=== PATIENT | female | born 1940 | race African-American/Black ===

== ENCOUNTER 2019-11-21 15:31 | Emergency (ER) | payer MEDICARE ==
[~2019-11-21] VITALS: Ht 154.9 cm; Wt 58.0 kg
[2019-11-21] MEDS ORDERED: hydrALAZINE 20 MG/ML VIAL. IVP ONE (16:00)
--- NOTE | 2019-11-21 16:04 | PHYS DOC ---
Adult General Chief Complaint Chief Complaint: DIZZY/LIGHT HEADED HPI HPI Patient is a 79 year old female with history of hypertension who presents to the ED today complaining of intermittent episodes of dizziness and tingling to bilateral fingers and reports hx of back/neck surgery, symptoms for 2 weeks. Patient denies any exacerbating or relieving factors to her symptoms. Denies any chest pain or shortness of breath. She reports her symptoms have increasingly gotten worse in the last couple days hence the reason she came to the ED. Review of Systems Review of Systems Constitutional: Denies fever or chills [] Eyes: Denies change in visual acuity, redness, or eye pain [] HENT: Denies nasal congestion or sore throat [] Respiratory: Denies cough or shortness of breath [] Cardiovascular: No additional information not addressed in HPI [] GI: Denies abdominal pain, nausea, vomiting, bloody stools or diarrhea [] : Denies dysuria or hematuria [] Musculoskeletal: Denies back pain or joint pain [] Integument: Denies rash or skin lesions [] Neurologic: Reports dizziness and finger tingling. Denies headache, focal weakness or sensory changes [] All other systems were reviewed and found to be within normal limits, except as documented in this note. Current Medications Current Medications Current Medications Medications (Trade) Dose Ordered Sig/Melida Start Time Stop Time Status Last Admin Dose Admin Furosemide (Lasix) 40 mg 1X ONCE 11/21/19 17:30 11/21/19 17:31 DC Hydralazine HCl (Apresoline Inj) 10 mg 1X ONCE 11/21/19 16:00 11/21/19 16:39 DC 11/21/19 16:00 10 MG Allergies Allergies Allergies Coded Allergies Type Severity Reaction Last Updated Verified No Known Drug Allergies 11/21/19 No Physical Exam Physical Exam Constitutional: Well developed, well nourished, no acute distress, non-toxic appearance. [] HENT: Normocephalic, atraumatic, bilateral external ears normal, oropharynx moist, no oral exudates, nose normal. [] Eyes: PERRLA, EOMI, conjunctiva normal, no discharge. [] Neck: Normal range of motion, no tenderness, supple, no stridor. [] Cardiovascular:Heart rate regular rhythm, no murmur [] Lungs & Thorax: Bilateral breath sounds clear to auscultation [] Abdomen: Bowel sounds normal, soft, no tenderness, no masses, no pulsatile masses. [] Skin: Warm, dry, no erythema, no rash. [] Back: No tenderness, no CVA tenderness. [] Extremities: No tenderness, no cyanosis, no clubbing, ROM intact, +2 pedal edema Neurologic: Alert and oriented X 3, normal motor function, normal sensory function, no focal deficits noted. Cranial nerves II through XII intact Psychologic: Affect normal, judgement normal, mood normal. [] Current Patient Data Vital Signs Vital Signs Date Time Temp Pulse Resp B/P (MAP) Pulse Ox O2 Delivery O2 Flow Rate FiO2 11/21/19 17:11 106 18 100 11/21/19 16:00 232/107 11/21/19 15:45 98.7 Room Air 98.7 Lab Values Laboratory Tests Test 11/21/19 16:15 11/21/19 16:23 Urine Collection Type Unknown Urine Color Yellow Urine Clarity Clear Urine pH 7.5 (<5.0-8.0) Urine Specific [place] 1.010 (1.000-1.030) Urine Protein Negative mg/dL (NEG-TRACE) Urine Glucose (UA) Negative mg/dL (NEG) Urine Ketones (Stick) Negative mg/dL (NEG) Urine Blood Negative (NEG) Urine Nitrite Negative (NEG) Urine Bilirubin Negative (NEG) Urine Urobilinogen Dipstick 0.2 mg/dL (0.2 mg/dL) Urine Leukocyte Esterase Negative (NEG) Urine RBC Occ /HPF (0-2) Urine WBC 0 /HPF (0-4) Urine Bacteria 0 /HPF (0-FEW) White Blood Count 5.6 x10^3/uL (4.0-11.0) Red Blood Count 3.97 x10^6/uL (3.50-5.40) Hemoglobin 12.7 g/dL (12.0-15.5) Hematocrit 36.7 % (36.0-47.0) Mean Corpuscular Volume 92 fL (79-100) Mean Corpuscular Hemoglobin 32 pg (25-35) Mean Corpuscular Hemoglobin Concent 35 g/dL (31-37) Red Cell Distribution Width 13.2 % (11.5-14.5) Platelet Count 310 x10^3/uL (140-400) Neutrophils (%) (Auto) 56 % (31-73) Lymphocytes (%) (Auto) 30 % (24-48) Monocytes (%) (Auto) 12 % (0-9) H Eosinophils (%) (Auto) 1 % (0-3) Basophils (%) (Auto) 1 % (0-3) Neutrophils # (Auto) 3.1 x10^3/uL (1.8-7.7) Lymphocytes # (Auto) 1.7 x10^3/uL (1.0-4.8) Monocytes # (Auto) 0.7 x10^3/uL (0.0-1.1) Eosinophils # (Auto) 0.0 x10^3/uL (0.0-0.7) Basophils # (Auto) 0.1 x10^3/uL (0.0-0.2) Sodium Level 130 mmol/L (136-145) L Potassium Level 3.7 mmol/L (3.5-5.1) Chloride Level 96 mmol/L (98-107) L Carbon Dioxide Level 26 mmol/L (21-32) Anion Gap 8 (6-14) Blood Urea Nitrogen 11 mg/dL (7-20) Creatinine 0.7 mg/dL (0.6-1.0) Estimated GFR (Cockcroft-Gault) 80.9 BUN/Creatinine Ratio 16 (6-20) Glucose Level 79 mg/dL (70-99) Calcium Level 10.2 mg/dL (8.5-10.1) H Magnesium Level 1.6 mg/dL (1.8-2.4) L Total Bilirubin 0.5 mg/dL (0.2-1.0) Aspartate Amino Transferase (AST) 17 U/L (15-37) Alanine Aminotransferase (ALT) 15 U/L (14-59) Alkaline Phosphatase 68 U/L (46-116) Creatine Kinase 153 U/L (26-192) Creatine Kinase MB (Mass) 2.3 ng/mL (0.0-3.6) Creatine Kinase MB Relative Index 1.5 % (0-4) Troponin I Quantitative < 0.017 ng/mL (0.000-0.055) ST-Mzv-F-Type Natriuretic Peptide 233 pg/mL (0-449) Total Protein 7.0 g/dL (6.4-8.2) Albumin 3.6 g/dL (3.4-5.0) Albumin/Globulin Ratio 1.1 (1.0-1.7) Thyroid Stimulating Hormone (TSH) 0.992 uIU/mL (0.358-3.74) Urine Opiates Screen Neg (NEG) Urine Methadone Screen Neg (NEG) Urine Barbiturates Neg (NEG) Urine Phencyclidine Screen Neg (NEG) Urine Amphetamine/Methamphetamine Neg (NEG) Urine Benzodiazepines Screen Neg (NEG) Urine Cocaine Screen Neg (NEG) Urine Cannabinoids Screen Neg (NEG) Urine Ethyl Alcohol Neg (NEG) Laboratory Tests 11/21/19 16:23 Laboratory Tests 11/21/19 16:23 EKG EKG [address] Rodriguez sinus rhythm HR 61 no STEMI[] Radiology/Procedures Radiology/Procedures []PROCEDURE: PORTABLE CHEST 1V EXAM: Chest, single view. HISTORY: Dizziness. COMPARISON: None. FINDINGS: A frontal view of the chest is obtained. There is no infiltrate, pleural effusion or pneumothorax. The heart is normal in size. There is cervical spinal fusion instrumentation. IMPRESSION: No acute pulmonary finding. Electronically signed by: Poppy Silverman MD (11/21/2019 4:48 PM) [facility] [place] DICTATED and SIGNED BY: POPPY SILVERMAN MD DATE: 11/21/191647 PROCEDURE: CT HEAD WO CONTRAST CT HEAD WO CONTRAST History: Dizziness Comparison: None. Technique: Noncontrast CT imaging was performed of the head. Exposure: One or more of the following individualized dose reduction techniques were utilized for this examination: 1. Automated exposure control 2. Adjustment of the mA and/or kV according to patient size 3. Use of iterative reconstruction technique. Findings: No intracranial hemorrhage. No mass effect. No hydrocephalus. Mild brain parenchymal volume loss. Mild foci of decreased attenuation within hemispheric white matter, most often due to chronic microvascular ischemia. Senescent basal ganglia calcifications. Imaged orbits are unremarkable. Imaged paranasal sinuses and mastoid air cells are clear. No acute calvarial fracture. TMJ arthropathy. Impression: 1. No acute intracranial abnormality. Electronically signed by: Venkata Mondragon DO (11/21/2019 4:48 PM) [id number] DICTATED and SIGNED BY: VENKATA MONDRAGON DO DATE: 11/21/191647 Course & Med Decision Making Course & Med Decision Making Pertinent Labs and Imaging studies reviewed. (See chart for details) This is a 79-year-old female patient who presents to the ED today complaining of dizziness for 2 weeks. Also complaining of bilateral finger tingling and reports hx of cervical/back surgery. Blood pressure on arrival to the ED 236/108, HR 88, patient was given hydra lazine 1 dose. CBC with no acute findings, sodium 130. Patient reports being on a very strict low-sodium diet. She is alert oriented x3. Recommended she increases her dietary sodium intake just for 1 or 2 days to get this number up. CT of the head is negative, chest x-ray is negative. Urine analysis is negative. Blood pressure has come down to 173/79, heart rate 78, patient was discharged to home. F/u with PCP next week. Dragon Disclaimer Dragon Disclaimer This electronic medical record was generated, in whole or in part, using a voice recognition dictation system. Departure Departure Impression: Primary Impression: Accelerated hypertension Additional Impressions: Dizziness Edema Hyponatremia Disposition: 01 HOME, SELF-CARE Condition: STABLE Patient Instructions: Dizziness, [id number] Additional Instructions: Please increase your salt intake for 1-2 days only Please consider wearing compression stockings and elevating your bilateral lower extremities. Please ensure you are taking your blood pressure medicines Follow up with your doctor in 1-2 weeks Problem Qualifiers Additional Impressions: Edema Edema type: unspecified Qualified Codes: R60.9 - Edema, unspecified TAMMYTISHA Yoder MARISOL Nov 21, 2019 16:04
[2019-11-21 16:32] LABS: BILIRUBIN,URINE NEGATIVE (NEG); CLARITY,URINE CLEAR; COLOR,URINE YELLOW; NITRITE,URINE NEGATIVE (NEG); PH,URINE 7.5 (<5.0-8.0); PROTEIN,URINE NEGATIVE (NEG-TRACE); UROBILINOGEN,URINE 0.2 mg/dL (0.2 mg/dL)
[2019-11-21 16:32] LABS: BASO # 0.1 x10^3/uL (0.0-0.2); BASO % 1 % (0-3); EOS % 1 % (0-3); HEMATOCRIT 36.7 % (36.0-47.0); HEMOGLOBIN 12.7 g/dL (12.0-15.5); LYMPH # 1.7 x10^3/uL (1.0-4.8); LYMPH % 30 % (24-48); MEAN CORPUSCULAR HEMOGLOBIN 32 pg (25-35); MEAN CORPUSCULAR HGB CONC 35 g/dL (31-37); MEAN CORPUSCULAR VOLUME 92 fL (79-100); MONO # 0.7 x10^3/uL (0.0-1.1); MONO % 12 % (0-9); NEUT # 3.1 x10^3/uL (1.8-7.7); NEUT % 56 % (31-73); PLATELET COUNT 310 x10^3/uL (140-400); RED BLOOD COUNT 3.97 x10^6/uL (3.50-5.40); RED CELL DISTRIBUTION WIDTH 13.2 % (11.5-14.5); WHITE BLOOD COUNT 5.6 x10^3/uL (4.0-11.0)
[2019-11-21 16:39] LABS: BARBITURATES NEG (NEG); BENZODIAZEPINES NEG (NEG); CANNABINOIDS NEG (NEG); COCAINE NEG (NEG); METHADONE NEG (NEG); OPIATES NEG (NEG); PHENCYCLIDINE NEG (NEG)
[2019-11-21 16:41] LABS: BACTERIA,URINE 0 /HPF (0-FEW); RBC,URINE OCC /HPF (0-2); WBC,URINE 0 /HPF (0-4)
[2019-11-21 16:41] LABS: AMPHETAMINE/METHAMPHETAMINE NEG (NEG)
[2019-11-21 16:44] LABS: CALCIUM 10.2 mg/dL (8.5-10.1); CREATININE 0.7 mg/dL (0.6-1.0); GFR 80.9; POTASSIUM 3.7 mmol/L (3.5-5.1)
[2019-11-21 16:50] LABS: ALBUMIN 3.6 g/dL (3.4-5.0); ALBUMIN/GLOBULIN RATIO 1.1 (1.0-1.7); MAGNESIUM 1.6 mg/dL (1.8-2.4); TOTAL BILIRUBIN 0.5 mg/dL (0.2-1.0)
--- NOTE | 2019-11-21 16:51 | RAD ---
EXAM: Chest, single view. HISTORY: Dizziness. COMPARISON: None. FINDINGS: A frontal view of the chest is obtained. There is no infiltrate, pleural effusion or pneumothorax. The heart is normal in size. There is cervical spinal fusion instrumentation. IMPRESSION: No acute pulmonary finding. Electronically signed by: Poppy Sierra MD (11/21/2019 4:48 PM) [facility] [place]
--- NOTE | 2019-11-21 16:51 | RAD ---
CT HEAD WO CONTRAST History: Dizziness Comparison: None. Technique: Noncontrast CT imaging was performed of the head. Exposure: One or more of the following individualized dose reduction techniques were utilized for this examination: 1. Automated exposure control 2. Adjustment of the mA and/or kV according to patient size 3. Use of iterative reconstruction technique. Findings: No intracranial hemorrhage. No mass effect. No hydrocephalus. Mild brain parenchymal volume loss. Mild foci of decreased attenuation within hemispheric white matter, most often due to chronic microvascular ischemia. Senescent basal ganglia calcifications. Imaged orbits are unremarkable. Imaged paranasal sinuses and mastoid air cells are clear. No acute calvarial fracture. TMJ arthropathy. Impression: 1. No acute intracranial abnormality. Electronically signed by: Venkata Mondragon DO (11/21/2019 4:48 PM) [id number]
[2019-11-21 17:11] VITALS: BP 173/79
[2019-11-21] MEDS ORDERED: FUROSEMIDE 40 MG TABLET. PO ONE (17:30)
--- NOTE | 2019-11-21 21:48 | EKG ---
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
== END 2019-11-21 17:41 | disposition home or self-care (01) ==
LOC: ER 15:31
DX: R42 Dizziness and giddiness (principal); R60.0 Localized edema; E87.1 Hypo-osmolality and hyponatremia; I10 Essential (primary) hypertension; R20.2 Paresthesia of skin
CPT/HCPCS: 36415; 70450; 71045; 80053; 80307; 81001; 82553; 83735; 83880; 84443; 84484; 85025; 93005; 96374; 99285; J0360

== ENCOUNTER → 2019-12-04 | Outpatient (CLI) | payer MEDICARE ==
[2019-11-21 17:11] VITALS: BP 173/79
--- NOTE | 2019-12-04 12:04 | KCIC ---
MRI of the cervical spine without contrast 12/04/2019 CLINICAL HISTORY: Neck pain with bilateral hand weakness. History of previous cervical fusion. TECHNIQUE: Unenhanced T1-weighted, T2-weighted and inversion recovery sagittal and gradient echo T2-weighted axial images of the cervical spine were obtained. FINDINGS: There is straightening of the normal cervical lordosis. The patient is post laminectomy and anterior fusion and discectomy using what appears to be anterior plate, bone screws and bone graft material extending from C3 to C6. Degenerative signal changes and loss of height are seen involving the C2-3 and, C6-7 and C7-T1 discs. Degenerative signal changes are seen within the marrow surrounding these discs. Increased signal intensity is seen involving the cervical spinal cord at the C2-3 level on the T2-weighted and inversion recovery images consistent with cord edema. This measures 8 mm in greatest diameter. Atrophy with areas of increased signal intensity consistent with myelomalacia are seen involving the cervical spinal cord extending from C4 to C5. At the C2-3 disc space there is a moderate generalized disc bulge. Superimposed on this disc bulge is a focal central disc protrusion. This measures 3 mm in AP diameter. Degenerative changes are seen involving the uncovertebral and facet joints bilaterally. These findings efface the anterior and posterior CSF resulting in severe central spinal canal stenosis with severe cord impingement. No neural foraminal stenosis is seen. At the C3-4, C4-5 and C5-6 levels posterior vertebral body osteophyte formation is seen. Degenerative changes are seen involving the uncovertebral and facet joints bilaterally. These findings do not result in significant central spinal canal or neural foraminal stenosis. At the C6-7 disc space there is a mild to moderate generalized disc bulge. This is eccentric to the left. Degenerative changes are seen involving the uncovertebral and facet joints, left greater than right. Superimposed on this disc bulge is a left paracentral focal disc protrusion. This measures 3 mm in AP diameter. These findings when combined result in mild left greater than right central spinal canal stenosis without evidence of cord impingement. Mild to moderate left neural foraminal stenosis is seen. The right neural foramen is patent. At the C7-T1 disc space there is a moderate generalized disc bulge. Degenerative changes are seen involving the uncovertebral and facet joints bilaterally. These findings efface the anterior and posterior CSF resulting in moderate central spinal canal stenosis without evidence of cord impingement. Moderate bilateral neural foraminal stenosis is seen. IMPRESSION: 1. Post laminectomy and anterior discectomy and fusion extending from C3 to C6. 2. Atrophy and areas of myelomalacia are seen involving the cervical spinal cord extending from C4 to C5. 3. Degenerative changes are seen involving the cervical spine. These findings result in severe central spinal canal stenosis with severe cord impingement at C2-3. Edema is seen involving the cervical spinal cord at this level. Mild left greater than right central spinal canal stenosis is seen at C6-7 and moderate central spinal canal stenosis is seen at C7-T1 without evidence of cord impingement. Mild to moderate left neural foraminal stenosis is seen at C6-7. Moderate bilateral neural foraminal stenosis is seen at C7-T1. Electronically signed by: Jayro Leonard MD (12/04/2019 12:02 PM) [id number]
== END | disposition home or self-care (01) ==
LOC: KCIC MRI 10:18
PROVIDERS: ATTEND Family Medicine
DX: M47.812 Spondylosis without myelopathy or radiculopathy, cervical region (principal); M25.78 Osteophyte, vertebrae; M48.03 Spinal stenosis, cervicothoracic region; M48.8X2 Other specified spondylopathies, cervical region; M48.02 Spinal stenosis, cervical region; G95.89 Other specified diseases of spinal cord; G95.19 Other vascular myelopathies
CPT/HCPCS: 72141

== ENCOUNTER → 2019-12-16 | Outpatient (CLI) | payer MEDICARE ==
[2019-11-21 17:11] VITALS: BP 173/79
[~2019-12-16] MED LIST: AMLO5TAB10 PO; ERGO2000 PO; GARL10002 PO; GLIP10TA13 PO; LACT1CAP29 PO; LATA2.5D3 EACHEYE; LISI1TAB19 PO; LOSA100T14 PO; NAPR220C4 PO; OXYC1TAB15 PO; PNV1TABL78 PO; SIMV20TA18 PO; SITA1TAB11 PO; TIMO5SOL10 EACHEYE
[2019-12-16 14:04] LABS: ALBUMIN 3.3 g/dL (3.4-5.0); CALCIUM 9.3 mg/dL (8.5-10.1); CREATININE 0.8 mg/dL (0.6-1.0); GFR 83.9; POTASSIUM 3.8 mmol/L (3.5-5.1); TOTAL BILIRUBIN 0.4 mg/dL (0.2-1.0); TOTAL PROTEIN 6.5 g/dL (6.4-8.2)
[2019-12-21 13:49] LABS: HEMOGLOBIN A1C SEE SEPARATE REPORT
== END | disposition home or self-care (01) ==
LOC: SURGPAT 13:09
PROVIDERS: ATTEND Neurological Surgery
DX: Z01.818 Encounter for other preprocedural examination (principal); M48.02 Spinal stenosis, cervical region; M62.81 Muscle weakness (generalized); E11.9 Type 2 diabetes mellitus without complications; Z88.0 Allergy status to penicillin
CPT/HCPCS: 36415; 80053; 83036; 87641

== ENCOUNTER 2019-12-21 08:08 | Observation (INO) | payer MEDICARE ==
--- NOTE | 2019-12-18 15:00 | PREOP HP ---
DATE OF SERVICE: 12/21/2019 HISTORY OF PRESENT ILLNESS: The patient is a pleasant 79-year-old woman who is having difficulty with left-sided neck pain and pain in her upper back. She notes tingling and numbness in her arms and to a lesser extent in her legs. 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 She notices poor balance and uses a walker. The problem has been progressive over the last few years. She rates her pain as a 5/10. She says the pain is constant. She takes Aleve as needed. She has not fallen. PAST MEDICAL HISTORY: Diabetes and glaucoma. CURRENT MEDICATIONS: Aleve, Janumet, glipizide, vitamin D, simvastatin, hydrochlorothiazide, probiotic, garlic, vitamin. ALLERGIES: PENICILLIN. PAST SURGICAL HISTORY: Lens implant on the right and left eyes, ACDF, hysterectomy, and carpal tunnel release bilateral. FAMILY HISTORY: Diabetes and hypertension. SOCIAL HISTORY: She is retired. She does not smoke or drink alcohol. She is single. REVIEW OF SYSTEMS: A 12-point review of systems was performed and is noncontributory except that mentioned above. PHYSICAL EXAMINATION: GENERAL: Alert, pleasant, in no acute distress. HEAD: Normocephalic and atraumatic. NECK: Vvoh-rr-zziluzys tenderness with palpation of the posterior cervical region, well-healed incision. SKIN: Warm and dry. MUSCULOSKELETAL: Cervical paraspinal muscle bulk is normal, cervical range of motion is restricted, normal range of motion of the upper extremities bilaterally. EXTREMITIES: No clubbing, cyanosis, or edema. NEUROLOGIC: Alert and oriented x 3, normal recent and remote memory. Strength is 4/5 in the bilateral upper and lower extremities except for her hands, which were 3/5. Her sensory was intact to light touch in the upper and lower extremities except for decrease in her hands bilaterally. Reflexes were increased and symmetric in the upper and lower extremities bilaterally. She uses a walker with ambulation. IMAGING: I reviewed her cervical MRI scan on that study. In the past, she has had an anterior cervical discectomy and fusion at C3-C4 and C4-C5. At C2-C3, she has developed severe cervical stenosis, which is due both to posterior disc bulging at C2-C3 as well as thickening of the posterior elements behind the spinal cord and indenting the spinal cord posteriorly. ASSESSMENT AND PLAN: She has severe symptomatic cervical stenosis. My recommendation is for her to undergo a cervical laminectomy at C2-C3. I did discuss this with her and her granddaughter. She understands the rationale, technique and risk as well as the expected postoperative course. She would like to go ahead. KYLE REYNOSO MD DR: BRYANNA/raven JOB#: [id number] / [id number] VIRIDIANA
[2019-12-21] VITALS (7 sets, daily range): BP systolic 134–175; BP diastolic 62–101
[~2019-12-21] VITALS: Ht 154.9 cm; Wt 56.7 kg
[~2019-12-21 08:08] MED LIST changes: +BACITRACIN 50,000 UNIT in IV NORMAL SALINE 1000ML BAG 1,000 ML IRR ONE; +BUPIVACAINE-EPI 0.5%-1:200000 MPF 30 ML VIAL. ONE; +GELATIN SPONGE SIZE 100. ONE; +KETOROLAC 60 MG/2 ML VIAL. ONE; -OXYC1TAB15 PO; +THROMBIN TOPICAL 20,000 UNIT SPRAY.SYRN KIT TP ONE
[2019-12-21] MEDS: IV RINGERS,LACTATED 1000ML 1,000 ML IV SCH ×2 (08:57→22:20)
[2019-12-21] MEDS ORDERED: INSULIN LISPRO 100 UNIT/ML 3ML VIAL for OP,RR ONLY. SQ PRN (09:00)
[2019-12-21 09:14] LABS: CALCIUM 9.7 mg/dL (8.5-10.1); CREATININE 0.6 mg/dL (0.6-1.0); POTASSIUM 4.1 mmol/L (3.5-5.1)
[2019-12-21] MEDS ORDERED: ROCURONIUM 50 MG/5 ML VIAL. ONE (09:59)
[2019-12-21] MEDS ORDERED: REMIFENTANIL 2 MG VIAL. IV ONE (09:59)
[2019-12-21] MEDS ORDERED: GLYCOPYRROLATE 1 MG/5 ML VIAL. ONE (09:59)
[2019-12-21] MEDS ORDERED: PROPOFOL 20 ML IV ONE (10:49)
[2019-12-21] MEDS ORDERED: PROPOFOL 50 ML IV ONE (10:49)
[2019-12-21] MEDS ORDERED: LIDOCAINE 2% PF 5 ML VIAL. ONE (10:49)
[2019-12-21] MEDS ORDERED: fentaNYL PF VIAL 250 MCG/5 ML VIAL ONE (11:21)
[2019-12-21] MEDS ORDERED: POVIDONE-IODINE 10% TOPICAL OINTMENT 28GM TUBE. TP ONE (12:02)
[2019-12-21] MEDS ORDERED: PHENYLEPHRINE in 0.9% NACL PF 1 MG/10 ML SYRINGE. IV ONE (12:11)
[2019-12-21] MEDS ORDERED: ePHEDrine PF IN SALINE 50 MG/10 ML SYRINGE. IV ONE (12:30)
[2019-12-21] MEDS ORDERED: PHENYLEPHRINE 10 MG/ML VIAL. ONE ×2 (12:44)
[2019-12-21] MEDS ORDERED: DESFLURANE > 120 MINUTES IH ONE (14:31)
[2019-12-21] MEDS ORDERED: POTASSIUM CL 20MEQ-0.45% NACL 1,000 ML IV SCH (15:06)
[2019-12-21] MEDS ORDERED: CALCIUM CARBONATE 500 MG TAB.CHEW PO PRN (15:15)
[2019-12-21] MEDS ORDERED: METHOCARBAMOL 750 MG TABLET PO PRN (15:15)
[2019-12-21] MEDS ORDERED: NALOXONE 0.4 MG/ML VIAL. IV PRN (15:15)
[2019-12-21] MEDS ORDERED: diphenhydrAMINE HCL 25 MG CAPSULE PO PRN (15:15)
[2019-12-21] MEDS ORDERED: 0.9 % SODIUM CHLORIDE 10 ML DISP.SYRIN. IV PRN (15:15)
[2019-12-21] MEDS ORDERED: oxyCODONE/APAP 5/325 1 TAB TABLET PO PRN (15:15)
[2019-12-21] MEDS ORDERED: MAG HYDROX/ALUMINUM HYD/SIMETH 30 ML ORAL.SUSP PO PRN (15:15)
[2019-12-21] MEDS ORDERED: ACETAMINOPHEN 325 MG TABLET. PO PRN (15:15)
[2019-12-21] MEDS ORDERED: MAGNESIUM HYDROXIDE 2,400 MG/30 ML ORAL.SUSP. PO PRN (15:15)
[2019-12-21] MEDS ORDERED: DEXTROSE 50% 25 GM / 50ML DISP.SYRIN. IV PRN (15:15)
--- NOTE | 2019-12-21 16:04 | OP ---
DATE OF SURGERY: 12/21/2019 PREOPERATIVE DIAGNOSES: Cervical spinal stenosis, C2-C3 with cervical myelopathy. POSTOPERATIVE DIAGNOSIS: Cervical spinal stenosis, C2-C3 with cervical myelopathy. OPERATION PERFORMED: C2 through C4 laminectomy. SURGEON: Remington Reynoso M.D. OCCUPATIONAL MEDICINE SPECIALIST: JANETH Todd assisted with the exposure, the laminectomy and closure. The operation also used fluoroscopy, microscopic dissection, microscopy, multimodality monitoring including EMG, SSEP and motor evoked potentials. OPERATIVE INDICATIONS: The patient is a pleasant 79-year-old woman who in the past has undergone anterior cervical discectomy and fusion from C3-C5 and did very well. This was done for spinal stenosis. This was a number of years ago and now she has developed problems with instability of gait and numbness in her arms. On her imaging studies, she had developed significant stenosis at C2-C3 from both anterior and posterior orientations. I did review the films with Dr. Parish SALAS and he agreed with the cervical laminectomy and I did discuss the risks, pros and cons of surgery of this nature with her and her granddaughter. She understood well and wished to go ahead. DESCRIPTION OF PROCEDURE: Following general endotracheal anesthesia, the patient was positioned prone in Oscar pins. The posterior cervical region was prepped and draped in standard fashion. ZAHRA hose and AV impulse boots were applied for DVT prophylaxis. The microscope was draped. Fluoroscopy was draped and brought into field. Monitoring was established. Ancef 2 grams was given less than 1 hour prior to initiation of surgery. Using fluoroscopic guidance, a midline posterior incision was made, I dissected through skin and subcutaneous tissue, reflected the paraspinal muscles and exposed the, C1, C2, C3, C4 and superior C5. I then placed cerebellar retractors. I brought in the microscope and using the high speed air drill, I burred a trough on each side extending from C2 to C4 and then using a 2 mm micro Kerrison trimmed ligaments and gently lifted the spinous processes up and off. There was considerable scarring between C2 and the dura and I had to work very gingerly to separate this. The surgery went fine and I, at this point, then irrigated with antibiotic solution. I explored carefully and assured myself of excellent hemostasis and then I closed the wound in layers with absorbable suture. The skin was closed with skin gianna. The operation went very well and I was quite pleased with the surgery. REMINGTON REYNOSO MD DR: ROSELYN/raven JOB#: [id number] / [id number] VIRIDIANA
[2019-12-21] MEDS: glipiZIDE 5 MG TABLET PO SCH ×2 (16:30→20:54)
[2019-12-21] MEDS: metFORMIN 500 MG TABLET PO SCH ×2 (17:00→20:54)
--- NOTE | 2019-12-21 17:45 | NUR ---
Ambulated to bathroom with unsteady gait. Got walker and did better. Voided 300cc clear yellow urine. Returned to bed. State she is hungry. Dinner tray ordered. Cont. monitor.
--- NOTE | 2019-12-21 17:46 | NUR ---
Admitted to unit by bed from PACU. Awake with no c/o at this time. Dressing posterior neck is d/i. Moves all extremities without difficulty. IVF's intact and infusing. ZAHRA's and ESHA on bilaterally. Oriented to room and controls. Side rails up x's 3 with call light in reach. Cont. monitor.
[2019-12-21] MEDS: amLODIPine BESYLATE 5 MG TABLET PO SCH (18:20)
[2019-12-21] MEDS: LOSARTAN POTASSIUM 50 MG TABLET. PO SCH (18:21)
--- NOTE | 2019-12-21 19:03 | NUR ---
Patient's Blood glucose was 85 at time of medication admin for metformin and glipizide. She was post-surgery and wasn't sure if she would eat dinner so we held those two medications.
[2019-12-21] MEDS: DOCUSATE SODIUM 100 MG CAPSULE. PO SCH (20:32)
[2019-12-21] MEDS ORDERED: SIMVASTATIN 20 MG TABLET PO SCH (21:00)
[2019-12-21] MEDS ORDERED: LATANOPROST 0.005% OPHTH SOLUTION 2.5ML BOTTLE. OU SCH (21:00)
[2019-12-22 03:00] VITALS: BP 153/69
[2019-12-22] MEDS: oxyCODONE/APAP 5/325 1 TAB TABLET PO PRN ×2 (03:19→13:44)
--- NOTE | 2019-12-22 03:27 | NUR ---
Percocet given for c/o surgical pain. Ice pack placed. Bloody drainage noted under transparent dressing.
[2019-12-22 07:08] VITALS: BP 134/67
[2019-12-22] MEDS ORDERED: TIMOLOL 0.5% OPHTH SOLUTION 5ML BOTTLE. OU SCH (08:00)
[2019-12-22] MEDS: DOCUSATE SODIUM 100 MG CAPSULE. PO SCH (08:30)
[2019-12-22] MEDS: amLODIPine BESYLATE 5 MG TABLET PO SCH (08:33)
[2019-12-22] MEDS: LOSARTAN POTASSIUM 50 MG TABLET. PO SCH (08:34)
[2019-12-22] MEDS ORDERED: PRENATAL MULTIVITAMIN TABLET. PO SCH (09:00)
[2019-12-22] MEDS ORDERED: LINAGLIPTIN 5 MG TABLET PO SCH (09:00)
[2019-12-22] MEDS ORDERED: LACTOBACILLUS RHAMNOSUS GG 1 CAPSULE. PO SCH (09:00)
[2019-12-22 10:46] VITALS: BP 136/59
[2019-12-22] MEDS ORDERED: OXYC1TAB15 PO (12:10)
--- NOTE | 2019-12-22 12:11 | DISCH ---
DISCHARGE INSTRUCTIONS Condition on Discharge Condition on Discharge: Stable Activity After Discharge Activity Instructions for Disc: Activity as tolerated, Avoid exertion Lifting Instructions after Dis: No heavy lifting, No pulling or pushing, Do not lift >10 pounds Driving Instructions after Dis: Do not drive Diet after Discharge Additional Diet Restrictions: resume home diet Wound Incision Care Wound/Incision Care: Ice to area for comfort Other wound/incision instructi: may remove dressing in 48 hours if dry, may shower, no soaking Follow-Up Follow up with: Dr. Reynoso in 2 weeks [phone] Treatment/Equipment after DC Adaptive Equipment Issued: Front wheeled walker KYLE REYNOSO MD Dec 22, 2019 12:11
--- NOTE | 2019-12-22 13:07 | SNU/HH DC ---
DISCHARGE WITH HOME HEALTH DISCHARGE INFORMATION: Discharge Date: Dec 22, 2019 Final Diagnosis: cervical stenosis Condition on Discharge: Stable CODE STATUS: Code Status: Full HOME HEALTH: Face to Face: I certify this patient is under my care and that I, or a nurse practitioner or physician's asset protection assistant working with me, had a face to face encounter that meets the physician face to face encounter requirements with this patient on []. Medical Complications: DM RN For Eval/Treatment: Yes Physical Therapy For: Evalulation/Treatment Occupational Therapy For: Evaluation/Treatment Pt Meets Homebound Status: Unsteady balance w/ amb, POST DISCHARGE ORDERS: Activity Instructions for Disc: Progressive ambulation Weight Bearing Status after Di: Full weight bearing Bathing Instructions: Shower-keep dressing dry, No Tub Bath until see Dr. LEROY AFTER DISCHARGE: MERCEDES Wound/Incision Care: Ice to area for comfort, May get incision wet Other wound/incision instructi: may remove dressing in 48 hours if dry, may shower, no soaking FOLLOW-UP: Follow up with: Dr. Reynoso in 2 weeks [phone] Follow Up With: Dr. Reynoso in 10-14 days [phone] TREATMENT/EQUIPMENT ORDERS: Adaptive Equipment Issued: None, Front wheeled walker CERTIFICATION STATEMENT: Certification Statement: Certification Statement: Based on the above finding, I certify that this patient is confined to the home and needs intermittent shelter care, physical therapy and/or speech therapy, or continues to need occupational therapy.~ This patient is under my care, and I have initiated the establishment of the plan of care.~ This patient will be followed by myself or a community physician who will periodically review the plan of care. Home Meds Active Scripts Oxycodone/Apap 5-325 (PERCOCET 5-325 MG TABLET ) 1 Each Tablet, 1 TAB PO PRN Q4HRS PRN for MILD PAIN, 1ST CHOICE, #30 TAB Prov:KYLE REYNOSO MD 12/22/19 Reported Medications Amlodipine Besylate (AMLODIPINE BESYLATE) 5 Mg Tablet, 5 MG PO DAILY for BP CONTROL, TAB 12/17/19 Losartan Potassium (LOSARTAN POTASSIUM) 100 Mg Tablet, 100 MG PO DAILY for HYPERTENSION, TAB 12/17/19 Latanoprost (LATANOPROST) 2.5 Ml Drops, 1 DROP EACHEYE QHS for glaucoma, #7.5 ML 3 Refills 12/16/19 Timolol Maleate (TIMOLOL MALEATE) 5 Ml Yenifer.gel, 1 DROP EACHEYE DAILYWBKFT for glaucoma, #15 ML 0 Refills 12/16/19 Simvastatin (SIMVASTATIN) 20 Mg Tablet, 1 TAB PO QHS for cholesterol, #30 TAB 5 Refills 12/16/19 Naproxen Sodium (ALEVE) 220 Mg Capsule, 220 MG PO BID for pain, CAP 12/16/19 Sitagliptin Phos/Metformin Hcl (JANUMET 50-1,000 MG TABLET) 1 Each Tablet, 1 TAB PO BID for diabetes, #60 TAB 5 Refills 12/16/19 Ergocalciferol (Vitamin D2) (VITAMIN D2) 2,000 Unit Tablet, 41169 UNIT PO WEEKLY for vitamin, TAB 12/16/19 Glipizide (GLIPIZIDE) 10 Mg Tablet, 1 TAB PO BID for diabetes, #60 TAB 5 Refills 12/16/19 Pnv No.122/Iron/Folic Acid ( Multi Tablet) 1 Each Tablet, 1 TAB PO DAILY for vitamin for 30 Days, #30 TAB 0 Refills 12/16/19 Garlic (GARLIC) 1,000 Mg Capsule, 1000 MG PO DAILY for supplement, CAP 12/16/19 Lactobacillus Combo No.10 (PROBIOTIC) 1 Each Capsule, 1 TAB PO DAILY for gi for 30 Days, #30 TAB 0 Refills 12/16/19 Discontinued Reported Medications Lisinopril/Hydrochlorothiazide (LISINOPRIL-HCTZ 20-12.5 MG TAB) 1 Each Tablet, 1 TAB PO DAILY for htn, #30 TAB 5 Refills 12/16/19 KYLE REYNOSO MD Dec 22, 2019 13:07
--- NOTE | 2019-12-22 13:33 | DS ---
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 OPERATION PERFORMED: C2 through C4 laminectomy. HISTORY OF PRESENT ILLNESS: The patient is a pleasant 79-year-old woman, who has undergone anterior cervical diskectomy and fusion in the past and did well with that. She developed problems with instability of gait and numbness in her arms. On imaging studies, she had developed significant stenosis at C2-C3. I recommended a cervical laminectomy. I did discuss this with her including the technique, risk, and expected postoperative course. She understands and would like to proceed. HOSPITAL COURSE: She was admitted to the floor postoperatively where she has done well. She has been up ambulating in the room with Physical Therapy. Her pain is well controlled. She will be discharged with Home Health Services. DISCHARGE MEDICATIONS: She will resume her medications per the MRAD. DISCHARGE INSTRUCTIONS: She was instructed regarding incision care, activity restrictions, and expectations for the next several weeks. She will follow up in our office in 2 weeks. She understands to call with any questions or concerns. KYLE REYNOSO MD DR: BRYANNA/raven JOB#: [id number] / [id number]
--- NOTE | 2019-12-22 14:16 | NUR ---
Gave discharge instructions and prescription to patient and spoke with daughter, Va, on phone. Answered questions and concerns. Both pt and daughter verbalized understanding. Extra dressing given. Pt discharge home with home health.
--- NOTE | 2019-12-24 15:06 | PATHOLOGY ---
[facility] Accession Number: [id number] . 01 Material submitted: . vertebral column - CERVICAL DECOMPRESSION . 01 Clinical history: . Cervical stenosis . 02 Diagnosis: Segments of fibrocartilaginous, fibroadipose, and skeletal muscle tissue and bone, cervical decompression: - Degenerative changes of fibrocartilaginous tissue with focal neovascularization. (JPM:[facility] 12/24/2019) P 12/24/2019 0904 Local . 02 Comment: There is no evidence of an acute inflammatory process or malignancy. (JPM:[facility] 12/24/2019) . 02 Electronically signed: . Tyrell Coyle MD, Pathologist NPI- [id number] . 01 Gross description: . The specimen is received in formalin, labeled "Link, Cloyce, cervical decompression" and consists of multiple segments of nguyễn-white and devi-brown rubbery and gritty tissue and bone, measuring 4.3 x 2.2 x 1.6 cm in aggregate. A sales representative malt liquors portion is submitted in A1 following decalcification. ([facility]; 12/22/2019) SYU/SYU 12/24/2019 0902 Local . 02 Pathologist provided ICD-10: M50.30 . 02 CPT . 759190, [id number] Specimen Comment: A courtesy copy of this report has been sent to [phone], [phone] Specimen Comment: [id number] Specimen Comment: Report sent to / DR WEATHERS Performed at: 01 [facility] [address], [place] [id number] MD Tyler Muir MD Phone: [phone] Performed at: 02 [facility] [address] [place], [place] [id number] MD Tyrell Coyle MD Phone: [phone]
[2019-12-28] MEDS ORDERED: ERGOCALCIFEROL (VITAMIN D2) 50,000 UNIT CAPSULE. PO SCH (09:00)
== END 2019-12-22 14:10 | disposition home health service (06) ==
LOC: SURG 08:08 → 4 NORTH 14:47 → INTOOBSV 14:47
PROVIDERS: ADMIT Neurological Surgery; ATTEND Neurological Surgery
DX: M48.02 Spinal stenosis, cervical region (principal); E11.9 Type 2 diabetes mellitus without complications; H40.9 Unspecified glaucoma; Z79.899 Other long term (current) drug therapy; Z98.890 Other specified postprocedural states; Z98.891 History of uterine scar from previous surgery
CPT/HCPCS: 36415; 63045; 63048; 76000; 80048; 82962; 97163; A7015; G0378; G0379; J0171; J0696; J1815; J1885; J2370; J2704; J3010; J3490; J7030; J7120

== ENCOUNTER → 2020-03-16 | Outpatient (CLI) | payer MEDICARE ==
[~2020-03-16] MED LIST changes: -BACITRACIN 50,000 UNIT in IV NORMAL SALINE 1000ML BAG 1,000 ML IRR ONE; -BUPIVACAINE-EPI 0.5%-1:200000 MPF 30 ML VIAL. ONE; -GELATIN SPONGE SIZE 100. ONE; -KETOROLAC 60 MG/2 ML VIAL. ONE; +OXYC1TAB15 PO; -THROMBIN TOPICAL 20,000 UNIT SPRAY.SYRN KIT TP ONE
--- NOTE | 2020-03-16 15:22 | RAD ---
CERVICAL SPINE 2-3V History: Cervical fusion Comparison: MRI exam December 04, 2019 and June 21, 2008 radiographs Findings: 2 views of the cervical spine are submitted. There is again anterior metallic plate and screws at C3, C4, C5, and C6. There are incorporated interbody grafts at these levels. There is again fairly severe degenerative disc disease C6-7, also spondylosis at this level. There has been progression of C2-3 degenerative disc disease since 2007. Cervical vertebral body stature and AP alignment are maintained. There is some atherosclerotic calcification of the carotid arteries in the neck bilaterally. Impression: 1. There is intact anterior cervical fusion hardware C3-C6. There is degenerative disc disease C2-3 and C6-7, progressed at C2-3 in the interval since 2007. Electronically signed by: Nick Dominguez MD (03/16/2020 3:19 PM) [facility]
== END | disposition home or self-care (01) ==
LOC: RAD 09:34
PROVIDERS: ATTEND Neurological Surgery
DX: M50.323 Other cervical disc degeneration at C6-C7 level (principal); M47.892 Other spondylosis, cervical region; I65.29 Occlusion and stenosis of unspecified carotid artery
CPT/HCPCS: 72040

== ENCOUNTER → 2022-01-17 | Outpatient (CLI) | payer MEDICARE ==
[~2022-01-17] MED LIST changes: +AMLO-186 PO; -AMLO5TAB10 PO; -LACT1CAP29 PO; +LACT1CAP37 PO; -LISI1TAB19 PO; +LISI1TAB37 PO
--- NOTE | 2022-01-17 08:36 | RAD ---
EXAMINATION: Upper and lower extremity pressure measurements of ankle/brachial index. INDICATION: Claudication, bilateral leg pain FINDINGS: The ankle/brachial index on the right side is 1.2, and on the left is 1.3. IMPRESSION: Normal DEMI, bilaterally. Electronically signed by: Sanchez Sharma MD (01/17/2022 8:34 AM) [id number]
== END ==
LOC: US 13:38
PROVIDERS: ATTEND Family Medicine
DX: M79.604 Pain in right leg (principal); M79.605 Pain in left leg; M48.062 Spinal stenosis, lumbar region with neurogenic claudication
CPT/HCPCS: 93922